=== PATIENT | female | born 1980 | race Two or more races ===

== ENCOUNTER 2017-07-17 18:19 | Emergency (ER) | payer MEDICAID ==
[~2017-07-17] VITALS: Ht 154.9 cm; Wt 127.0 kg
[2017-07-17 18:46] VITALS: BP 126/78
[2017-07-17] MEDS ORDERED: IBUPROFEN 600 MG TAB PO ONE (19:15)
[2017-07-17] MEDS ORDERED: CYCLOBENZAPRINE HCL 10 MG TAB PO ONE (19:15)
== END 2017-07-17 19:48 | disposition home or self-care (01) ==
LOC: ER 18:22
DX: S80.02XA Contusion of left knee, initial encounter (principal); R51 Headache; V49.49XA Driver injured in collision with other motor vehicles in traffic accident, initial encounter; Y93.89 Activity, other specified; Y99.8 Other external cause status; Y92.410 Unspecified street and highway as the place of occurrence of the external cause